=== PATIENT | male | born 1990 | race Caucasian/White ===

== ENCOUNTER → 2017-10-23 10:17 | Outpatient (CLI) | payer OTHER, SELFPAY ==
[2017-10-23 11:56] LABS: Hematocrit 43.1 % (40-54); Hemoglobin 14.7 g/dl (13.0-16.5); Mean Corp Hgb Conc 34.1 g/gl (32-36); Mean Corpuscular Hgb 30.5 pg (27.0-32.0); Mean Corpuscular Volume 89.4 fL (80-94); Mean Platelet Vol. 10.3 fl (6.2-12.0); Platelet Count 265 K/mm3 (150-450); RBC Distribution Width SD 42.3 fl (35.1-43.9); Red Blood Count 4.82 M/mm3 (4.6-6.2); White Blood Count 6.3 K/mm3 (4.4-11.0)
[2017-10-23 11:57] LABS: Scan Indicated on CBC? Y/N NO
[2017-10-23 12:31] LABS: Anion Gap 9 (5-15); BUN 21 mg/dL (7-18); BUN/Creat Ratio 21.4 RATIO (10-20); Calcium,Total 8.6 mg/dL (8.5-10.1); Chloride 104 mmol/L (98-107); Cholesterol 167 mg/dL (200); Creatinine, Serum 0.98 mg/dL (0.70-1.30); EST Glomerular Filtration Rate 99 mL/min (>60); Est Glom Filt Rate - Afr Amer 120 mL/min (>60); Glucose 87 mg/dL (74-106); High Density Lipoprotein 38 mg/dL; Potassium 4.3 mmol/L (3.5-5.1); Sodium Level 139 mmol/L (136-145); Triglycerides 77 mg/dL; Very Low Density Lipoprotein 15 mg/dL (5-40)
== END ==
PROVIDERS: Visit Provider Family Medicine
DX: Z00.00 Encounter for general adult medical examination without abnormal findings (principal)
CPT/HCPCS: 36415; 80048; 80061; 85027

== ENCOUNTER → 2019-03-12 09:14 | Outpatient (CLI) | payer BC, SELFPAY | PROVIDERS: Family Provider Family Medicine; PCP Family Medicine; Referring Provider Family Medicine; Visit Provider Family Medicine | DX: G47.10 Hypersomnia, unspecified (principal) | CPT/HCPCS: 95806 ==

== ENCOUNTER 2021-07-08 14:43 | Outpatient (CLI) | payer OTHER, SELFPAY ==
--- NOTE | 2021-07-08 14:49 | RAD_ITS ---
STUDY: X-RAY - LUMBAR SPINE REASON FOR EXAM: Male, 30 years old. LOW BACK PAIN back pain TECHNIQUE: XR Spine Lumbar Comp W/ Bending Min 6 Views COMPARISON: None FINDINGS: Normal lumbar lordosis. There is no substantial scoliosis. There is a normal alignment of the vertebrae. There is multilevel endplate spondylosis of the lumbar vertebrae. Normal disc space heights. The soft tissue structures are unremarkable. RAD/L/S Spine w Bend Min 6 Vw IMPRESSION: There is multilevel endplate spondylosis of the lumbar vertebrae Electronically Signed: Kar Rivas MD at 15:07 EDT ,
== END 2021-07-08 23:59 | disposition home or self-care (01) ==
LOC: MTRAD 14:46
PROVIDERS: PCP Family Medicine; Referring Provider Family Medicine; Visit Provider Family Medicine
DX: M54.9 Dorsalgia, unspecified (principal)
CPT/HCPCS: 72114

== ENCOUNTER 2021-07-29 17:30 | Outpatient (RCR) | payer OTHER, SELFPAY ==
--- NOTE | 2021-07-16 16:08 | HP.PTEVAL ---
Patient's Visit Information JEANNINE GRADY is a 30 year old M referred to Physical Therapy by Dr. Chava Arriaza MD with a diagnosis of LOW BACK PAIN AND HIP FLEXOR TIGHTNESS. Date of Evaluation: 07/16/21 Physical Therapist: Tiffani Billingsley PT, Cert MDT - Visit Plan Frequency: 2-3x /Week Duration: 4-6 Weeks Plan: US, ELECTRICAL STIMULATION WITH MH, POSTURE CORRECTION/STRENGTHENING, INSTRUCTION IN APPROPRIATE BODY MECHANICS AND ACTIVITY MODIFICATIONS. DLS STARTING WITH A NEUTRAL SPINE PROGRESSING ROM TOLERATED. RICHAR LE ROM, STRETCHING AND STRENGTHENING. HEP INSTRUCTION. 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 Disability: NO. Present symptoms: RICHAR LOW BACK LEFT > RIGHT. INTERMITTENT PAIN POSTERIOR THIGHS. PATIENT DENIES RICHAR LE NUMBNESS AND TINGLING. INTERMITTENTLY RICHAR HIPS GET REALLY TIGHT R > L. Present since: YEARS. Pain Scale: WORST 6/10, LEAST 0/10. Currently: 2/10. Commenced as a result of: NO APPARENT REASON. Symptoms at onset: LOW BACK PAIN. Worse: SITTING, DRIVING, SOMETIMES SHIFTING WEIGHT WHEN DRIVING GIVES SHARP BACK PAIN. 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 Better: MUSCLE RELAXERS, AVOIDING LIFTING. FREQUENT CHANGE OF POSITION. Disturbed sleep: YES. Previous history/Previous treatment: CHIROPRACTIC TREATMENTS X 3 OR 4 - IT JUST DIDN'T FEEL LIKE IT GOT BETTER AFTER DOING THAT. Coughing/sneezing/straining: NO. Gait: SOMETIMES IT CAUSES ME TO LIMP. Difficulty initiating urination: NO. Accidents: NO. Unexplained weight loss: NO. Imaging: RECENT LUMBAR X-RAY SHOWING ARTHRITIS PER PATIENT REPORT. [facility] EMR: Chava Arriaza MD. STUDY: X-RAY - LUMBAR SPINE. REASON FOR EXAM: Male, 30 years old. LOW BACK PAIN back pain. TECHNIQUE: XR Spine Lumbar Comp W/ Bending Min 6 Views. COMPARISON: None. . FINDINGS: Normal lumbar lordosis. There is no substantial scoliosis. There is a. normal alignment of the vertebrae. There is multilevel endplate spondylosis of the lumbar vertebrae. Normal. disc space heights. The soft tissue structures are unremarkable. . RAD/L/S Spine w Bend Min 6 Vw. IMPRESSION: There is multilevel endplate spondylosis of the lumbar vertebrae. . Electronically Signed: Kar Rivas MD. at 15:07 EDT. Reading Location ID and State: [facility] / [place]. , Service support , . PMH/Recent major surgery: SLEEP APNEA - Objective Sitting/Standing Posture: POOR. Lordosis: NORMAL. Lateral shift: NO. Relevant shift:N/A. Active Correction of posture: NE. Other Observations: INDEP GAIT AND TRANSFERS WITH NO GROSS DEVIATIONS. Motor deficit: RICHAR LE STRENGTH 5/5 EXCEPT HIPS 4/5. PATIENT DENIES INCREASED PAIN WITH TESTING. Sensory deficit: RICHAR LE LIGHT TOUCH SENSATION GROSSLY INTACT AND SYMMETRICAL. ROM deficit: TIGHT RICHAR HIP FLEXORS, HS'S AND GASTROC SOLEUS COMPLEX'S. Reflexes: UNABLE TO ELICIT RICHAR LE DTR'S. Dural Signs: POSITIVE RICHAR LE'S. Lumbar mvmt loss: flex - MOD - INCREASES LBP. ext - CASSIE - SHARP PAIN IN CENTRAL AND LEFT LOW BACK REGION. R SG - MIN - INCREASES LBP. L SG - MIN - INCREASES LBP. Core strength: FAIR. Palpation: NO ACUTE LUMBOSACRAL TENDERNESS. TREATMENT: NEUROMUSCULAR REEDUCATION - RETRAINING OF MVMT AND POSTURE FOR SITTING, LYING AND STANDING ACTIVITIES. - Balance/Special Test Scores Oswestry Low Back Score: 7 - Goals Goal 1:: DECREASE C/O LOW BACK AND RICHAR LE SX'S. Goal Time Frame: 4-6 Weeks Goal 2:: IMPROVE LIFTING, SLEEP, TRAVEL AND WORK FUNCTION Goal Time Frame: 4-6 Weeks Goal 3:: INSTRUCT IN PROPHYLAXIS Goal Time Frame: 4-6 Weeks - Anticipated Interventions Patient/Client Instruction: Educate patient on: Condition, Plan of Care, Risk Factors For the Purpose of:: To improve self management Therapeutic Exercise to Include: Strength training, Body mechanics, Postural training, Flexibilty training, Neuromotor development, In an aquatic setting, Dynamic Lumbar Stabilization For the Purpose of:: To decrease pain, To improve muscle performance and motor function, To increase tolerance to activity/condition/position, To improve ability of physical actions for home/community/work/leisure TENS: Yes IF ES: Yes Cryotherapy (ice pack, ice massage): Yes Thermo therapy (hot pack): Yes Ultrasound (thermal/non thermal): Yes For the Purpose of:: To decrease pain, To improve nutrient delivery to tissue Thank you for the opportunity to evaluate your patient. For Medicare and Medicare HMO plans, please review the plan of care and approve it. It will need to be FAXED BACK to us at [phone] for Medicare purposes. For Medicare only, by signing this I certify the plan of care. Please let me know if there are questions or concerns regarding this plan of care. Physician Signature: Date:
== END 2021-07-29 19:00 | disposition home or self-care (01) ==
LOC: PT 17:30
PROVIDERS: PCP Family Medicine; Referring Provider Family Medicine; Visit Provider Family Medicine
DX: M54.50 Low back pain, unspecified (principal); M24.559 Contracture, unspecified hip
CPT/HCPCS: 97035; 97110; 97112; 97162

== ENCOUNTER → 2022-12-27 | Outpatient (CLI) | payer OTHER, SELFPAY ==
[2022-12-27 14:41] LABS: Erythrocyte Sedimentation Rate 16 mm/hr (0-20)
[2022-12-27 14:47] LABS: Absolute Lymphocyte Count 1.91 X10^3/uL (0.83-4.51); Absolute Neutrophil Count 4.7 X10^3/uL (2.0-7.7); Basophil# 0.05 X10^3/uL; Basophil% 0.7 % (0-1); Eosinophil# 0.06 X10^3/uL; Eosinophils% 0.8 % (0-5); Hematocrit 41.6 % (40-54); Hemoglobin 14.2 g/dL (13.0-16.5); Lymphocyte # 1.91 X10^3/ul (0.83-4.51); Lymphocyte % 26.1 % (19-41); Mean Corp Hgb Conc 34.1 g/dL (32-36); Mean Corpuscular Hgb 30.7 pg (27.0-32.0); Monocyte# 0.55 X10^3/uL; Monocyte% 7.5 % (0-10); NRBC Flagged by Analyzer 0 % (0-5); Neutrophil # 4.74 X10^3/uL (2.7-7.7); Neutrophil % 64.6 % (47-70); Platelet Count 338 K/mm3 (150-450); RBC Distribution Width CV 12.7 % (11.6-14.6); RBC Distribution Width SD 41.6 fl (35.1-43.9); Red Blood Count 4.62 M/mm3 (4.6-6.2); White Blood Count 7.3 K/mm3 (4.4-11.0)
[2022-12-27 15:24] LABS: AST(SGOT) 38 U/L (15-37); Alanine Aminotransfer ALT/SGPT 64 U/L (16-61); Alkaline Phosphatase 81 U/L (45-117); Anion Gap 7 (5-15); BUN 13 mg/dL (7-18); BUN/Creat Ratio 15.2 RATIO (10-20); CRP < 2.90 mg/L (0.0-3.0); Calcium,Total 9.4 mg/dL (8.5-10.1); Chloride 103 mmol/L (98-107); Creatinine, Serum 0.86 mg/dL (0.70-1.30); EST Glomerular Filtration Rate 111 mL/min (>60); Est Glom Filt Rate - Afr Amer 134 mL/min (>60); Globulin 3.9 g/dL (2.2-4.2); Glucose 121 mg/dL (74-106); Potassium 3.9 mmol/L (3.5-5.1); Protein, Total 7.9 g/dL (6.4-8.2); Sodium Level 137 mmol/L (136-145); Thyroid Stim Hormone (TSH) 2.56 uIU/mL (0.358-3.74)
[2022-12-29 14:09] LABS: Deamidated Gliadin IgA 11 units (0-19); Deamidated Gliadin IgG 4 units (0-19); Endomysial Antibody IgA Negative (Negative); Immunoglobulin A 346 mg/dL (90-386); t-Transglutaminase IgA <2 U/mL (0-3)
[2023-01-01 13:07] LABS: Beef <0.10 kU/L (Class 0); Chocolate <0.10 kU/L (Class 0); Corn <0.10 kU/L (Class 0); Egg, Whole <0.10 kU/L (Class 0); Milk (Cow) 0.15 kU/L (Class 0/I); Peanut <0.10 kU/L (Class 0); Pork <0.10 kU/L (Class 0); Soybean <0.10 kU/L (Class 0); Wheat <0.10 kU/L (Class 0)
== END | disposition home or self-care (01) ==
LOC: MFPLAB 11:34
PROVIDERS: PCP Family Medicine; Visit Provider Family Medicine
DX: K58.9 Irritable bowel syndrome, unspecified (principal); R19.8 Other specified symptoms and signs involving the digestive system and abdomen
CPT/HCPCS: 36415; 80053; 82784; 83516; 84443; 85025; 85652; 86003; 86005; 86140; 86255

== ENCOUNTER → 2023-01-19 | Outpatient (CLI) | payer OTHER, SELFPAY ==
[2023-01-26 08:12] LABS: Pancreatic Elastase, Fecal 371 (>200)
== END | disposition home or self-care (01) ==
PROVIDERS: PCP Family Medicine; Referring Provider Family Medicine; Visit Provider Family Medicine
DX: K58.9 Irritable bowel syndrome, unspecified (principal)
CPT/HCPCS: 82274; 82653; 83630